=== PATIENT | male | born 1985 | race Caucasian/White ===

== ENCOUNTER 2020-05-19 19:46 | Emergency (ER) | payer SELFPAY ==
[~2020-05-19] VITALS: Ht 182.9 cm; Wt 103.0 kg
[2020-05-19 19:46] VITALS: BP 140/80
[2020-05-19] MEDS ORDERED: HYDROcodone/APAP 5/325MG 1 TAB TABLET PO ONE (20:15)
--- NOTE | 2020-05-19 20:15 | PHYS DOC ---
General Adult EDM: Chief Complaint: HAND PROBLEM HPI: HPI: Patient is a 34-year-old male who presents with right hand pain. Patient states that he got home from work and found trash all over his bed from his dog. Patient states "I just got irritated and I punched a wall". Patient is reporting pain to his right hand. Patient has full range of motion of wrist and fingers. Patient is up-to-date on immunizations. Patient reports taking Tylenol prior to arrival. Patient denies any health history. (NOEMÍ SPIVEY APRN) Review of Systems: Review of Systems: Constitutional: Denies fever or chills Eyes: Denies change in visual acuity HENT: Denies nasal congestion or sore throat Respiratory: Denies cough or shortness of breath Cardiovascular: Denies chest pain or edema GI: Denies abdominal pain, nausea, vomiting, bloody stools or diarrhea : Denies dysuria Musculoskeletal: Right hand pain Integument: Denies rash Neurologic: Denies headache, focal weakness or sensory changes Endocrine: Denies polyuria or polydipsia Lymphatic: Denies swollen glands Psychiatric: Denies depression or anxiety (NOEMÍ SPIVEY APRN) Physical Exam: PE: Constitutional: Well developed, well nourished, no acute distress, non-toxic appearance. [] HENT: Normocephalic, atraumatic, bilateral external ears normal, oropharynx moist, no oral exudates, nose normal. [] Eyes: PERRLA, EOMI, conjunctiva normal, no discharge. [] Neck: Normal range of motion, no tenderness, supple, no stridor. [] Cardiovascular:Heart rate regular rhythm, no murmur [] Lungs & Thorax: Bilateral breath sounds clear to auscultation [] Abdomen: Bowel sounds normal, soft, no tenderness, no masses, no pulsatile masses. [] Skin: Warm, dry, no erythema, no rash. [] Back: No tenderness, no CVA tenderness. [] Extremities: Right hand tenderness, ROM intact, no edema. [] Neurologic: Alert and oriented X 3, normal motor function, normal sensory function, no focal deficits noted. [] Psychologic: Affect normal, judgement normal, mood normal. [] (NOEMÍ SPIVEY APRN) EKG: EKG: [] (NOEMÍ SPIVEY APRN) Radiology/Procedures: Radiology/Procedures: []Study: XR HAND_RIGHT 3 VIEWS Indication: Punched a wall. Comparison: None. Findings: Acute fracture of the fourth metacarpal at the mid shaft with trace dorsal apex angulation. Maintained joint spaces. Impression: Acute fracture of the fourth metacarpal midshaft with minimal dorsal apex angulation. Electronically signed by: INES MERINO MD (05/19/2020 8:18 PM) [facility] (NOEMÍ SPIVEY APRN) Heart Score: Risk Factors: Risk Factors: DM, Current or recent (<one month) smoker, HTN, HLP, family history of CAD, obesity. Risk Scores: Score 0 - 3: 2.5% MACE over next 6 weeks - Discharge Home Score 4 - 6: 20.3% MACE over next 6 weeks - Admit for Clinical Observation Score 7 - 10: 72.7% MACE over next 6 weeks - Early Invasive Strategies (NOEMÍ SPIVEY APRN) Course & Med Decision Making: Course & Med Decision Making Pertinent Labs and Imaging studies reviewed. (See chart for details) [] X-ray right hand ordered. Hydrocodone given for pain. Patient states he is up-to-date on immunizations. X-ray shows acute fracture of the fourth metacarpal midshaft with minimal dorsal apex angulation. (NOEMÍ SPIVEY APRN) Course & Med Decision Making Did not see or evaluate patient. Agree with [employer]'s work-up and disposition per note. (PATY COREAS MD) Dragon Disclaimer: Dragon Disclaimer: This electronic medical record was generated, in whole or in part, using a voice recognition dictation system. (NOEMÍ SPIVEY APRN) Departure Departure: Impression: Primary Impression: Hand fracture, right Disposition: 01 DC HOME SELF CARE/HOMELESS Condition: STABLE Referrals: PCP,NO (PCP) Patient Instructions: Hand Fracture Additional Instructions: You were seen in the emergency room today for a fracture to your hand. You were given hydrocodone in the emergency room and also a prescription to take at home. Splint was applied. Make sure to use ice and elevate your hand to reduce swelling and discomfort. Please follow-up with Ortho for further evaluation. Please return to emergency room with worsening symptoms or concerns. [address], [address] [facility] [address] EMERGENCY DEPARTMENT GENERAL DISCHARGE INSTRUCTIONS Thank you for coming to [facility] (ED) today and trusting us with you care. We trust that you had a positivie experience in our Emergency Department. If you wish to speak to the department management, you may call the director at [phone]. YOUR FOLLOW UP INSTRUCTIONS ARE FOLLOWS: 1. Do you have a private Doctor? If you do not have a private doctor, please ask for a resource list of physicians or clinics that may be able to assist you with follow up care. 2. The Emergency Physician has interpreted your x-rays. The X-Ray specialist will also review them. If there is a change in the findings, you will be notified in 48 hours when at all possible. 3. A lab test or culture has been done, your results will be reviewed and you will be notified if you need a change in treatment. ADDITIONAL INSTRUCTIONS AND INFORMATION: 1. Your care today has been supervised by a physician who is specially trained in emergency care. Many problems require more than one evaluation for a complete diagnosis and treatment. We recommend that you schedule your follow up appointment as recommended to ensure complete treatment of you illness or injury. If you are unable to obtain follow up care and continue to have a problem, or if your condition worsens, we recommend that you return to the ED. 2. We are not able to safely determine your condition over the phone nor are we able to give sound medical advice over the phone. For these safety reasons, if you call for medical advice we will ask you to come to the ED for further evaluation. 3. If you have any questions regarding these discharge instructions please call the ED at [phone]. SAFETY INFORMATION: In the interest of safety, wellness, and injury prevention; we encourage you to wear your sealbelt, if you smoke; quite smoking, and we encourage family to use a protective helmet for bicycling and other sporting events that present an increased risk for head injury. IF YOUR SYMPTOMS WORSEN OR NEW SYMPTOMS DEVELOP, OR YOU HAVE CONCERNS ABOUT YOUR CONDITION; OR IF YOUR CONDITION WORSENS WHILE YOU ARE WAITING FOR YOUR FOLLOW UP APPOINTMENT; EITHER CONTACT YOUR PRIMARY CARE DOCTOR, THE PHYSICIAN WHOSE NAME AND NUMBER YOU WERE GIVEN, OR RETURN TO THE ED IMMEDIATELY. Scripts Hydrocodone/Acetaminophen (Hydrocodone-Acetamin 5-325 mg) 1 Each Tablet 1 EACH PO Q6HRS for fracture for 3 Days, #12 TAB Prov: NOEMÍ SPIVEY APRN 05/19/20 NOEMÍ SPIVEY APRN May 19, 2020 20:15 PATY COREAS MD May 22, 2020 18:29
--- NOTE | 2020-05-19 20:21 | RAD ---
Study: XR HAND_RIGHT 3 VIEWS Indication: Punched a wall. Comparison: None. Findings: Acute fracture of the fourth metacarpal at the mid shaft with trace dorsal apex angulation. Maintaine d joint spaces. Impression: Acute fracture of the fourth metacarpal midshaft with minimal dorsal apex angulation. Electronically signed by: INES MERINO MD (05/19/2020 8:18 PM) [facility]
[2020-05-19] MEDS ORDERED: HYDR-2759 PO (20:56)
== END 2020-05-19 21:50 | disposition home or self-care (01) ==
LOC: ER 19:46
DX: S62.324A Displaced fracture of shaft of fourth metacarpal bone, right hand, initial encounter for closed fracture (principal); W22.01XA Walked into wall, initial encounter; Y93.89 Activity, other specified; Y92.89 Other specified places as the place of occurrence of the external cause; Y99.8 Other external cause status
CPT/HCPCS: 29125; 73130; 99283